=== PATIENT | female | born 1990 | race Caucasian/White ===

== ENCOUNTER 2018-09-10 05:31 | Emergency (ER) | payer OTHER ==
[~2018-09-10] VITALS: Ht 167.6 cm; Wt 71.0 kg
[2018-09-10] MEDS ORDERED: VISCOUS LIDOCAINE 2% 15 ML UDC PO STA ×2 (05:57→07:35)
[2018-09-10] MEDS ORDERED: MAGNESIUM/ALUMINUM HYDROXIDE/SIMETHICONE 30ML UDC PO STA ×2 (05:57→07:35)
[2018-09-10] MEDS ORDERED: FAMOTIDINE 20MG/2ML VIAL IV STA (05:57)
[2018-09-10] MEDS ORDERED: MORPHINE SULFATE 4 MG/ML CPJ (NOT FOR IM USE) IV STA (05:57)
[2018-09-10] MEDS ORDERED: DICYCLOMINE 10 MG/5 ML ORAL SYR PO STA ×2 (05:57→07:35)
[2018-09-10 06:03] LABS: CLARITY URINE CLOUDY (CLEAR); COLOR URINE YELLOW (YELLOW); KETONES URINE NEGATIVE (NEGATIVE); LEUKOCYTE ESTERASE URINE 1+ (NEGATIVE); NITRITE URINE NEGATIVE (NEGATIVE); OCCULT BLOOD URINE 3+ (NEGATIVE); PH URINE 5.5 (4.5-8.0); PROTEIN URINE NEGATIVE (NEGATIVE); SPECIFIC GRAVITY URINE 1.032 (1.005-1.030)
[2018-09-10 06:27] LABS: BASOPHILS % 0.4 % (0.0-2.0); EOSINOPHILS % 2.3 % (0.0-5.0); LYMPHOCYTES % 21.2 % (20.0-50.0); MEAN CORPUSCULAR HEMOGLOBIN 28.4 pg (28.0-32.0); MEAN CORPUSCULAR VOLUME 85.3 fL (81.0-99.0); MEAN PLATELET VOLUME 9.4 fl (7.4-10.4); MONOCYTES % 11.7 % (2.0-8.0); NEUTROPHILS % 64.4 % (40.0-76.0); PLATELET 225 x1000/uL (130-400); RED BLOOD CELL COUNT 4.57 mill/uL (4.2-5.4)
[2018-09-10 06:32] LABS: CHLORIDE 108 mEq/L (98-107)
[2018-09-10 06:34] LABS: PROTHROMBIN TIME 10.7 sec (9.6-11.0)
[2018-09-10 06:36] LABS: HCG SCREEN NEGATIVE
[2018-09-10 08:50] VITALS: BP 129/69
== END 2018-09-10 09:03 | disposition home or self-care (01) ==
LOC: ER 05:31
DX: K80.20 Calculus of gallbladder without cholecystitis without obstruction (principal); F12.10 Cannabis abuse, uncomplicated; F17.210 Nicotine dependence, cigarettes, uncomplicated; Z87.11 Personal history of peptic ulcer disease; Z98.890 Other specified postprocedural states
CPT/HCPCS: 36415; 76705; 80053; 81003; 81025; 83690; 84703; 85025; 85610; 96374; 96375; 99284; J2270; J3490; Z7610